=== PATIENT | female | born 1985 | race Caucasian/White ===

== ENCOUNTER 2016-07-13 11:25 | Emergency (ER) | payer MEDICAID ==
[2016-07-13] MEDS ORDERED: NS 1,000 ML IV ONE (11:54)
[2016-07-13] MEDS ORDERED: HYDROmorphONE/DILAUDID 1 MG/ML SYR IVP ONE ×2 (11:54→13:12)
[2016-07-13] MEDS ORDERED: ONDANSETRON 4 MG/2 ML VIAL ONE (12:07)
[2016-07-13 12:27] LABS: % IMMATURE GRANULYOCYTES 0.2 % (0.0-1.1); ABSOLUTE IMMATURE GRANULOCYTES 0.02 10^3/uL (0.00-0.10); ADD DIFF? NO; ADD MORPH? NO; ADD SCAN? NO; ATYPICAL LYMPHOCYTE FLAG 0 (0-99); FRAGMENT RBC FLAG 0 (0-99); HEMATOCRIT 41.5 % (38.0-47.0); HEMOGLOBIN 14.3 g/dL (12.6-16.3); LEFT SHIFT FLG 0 (0-99); LIPEMIA HEMOLYSIS FLAG 90 (0-99); MEAN CELL HEMOGLOBIN 33.3 pg (27.9-34.1); MEAN CELL HEMOGLOBIN CONCENTR. 34.5 g/dL (32.4-36.7); MEAN CELL VOLUME 96.7 fL (81.5-99.8); PLATELET CLUMPS FLAG 0 (0-99); PLATELET COUNT 235 10^3/uL (150-400); RED BLOOD CELL COUNT 4.29 10^6/uL (4.18-5.33); RED CELL DISTRIBUTION WIDTH 12.2 % (11.5-15.2)
[2016-07-13] MEDS ORDERED: ONDANSETRON 4 MG/2 ML VIAL IVP ONE (12:32)
[2016-07-13 12:54] LABS: ANION GAP 9 mEq/L (8-16); CARBON DIOXIDE 24 mEq/l (22-31); CHLORIDE 105 mEq/L (97-110); CREATININE 0.7 mg/dL (0.6-1.0); GLOMERULAR FILTRATION RATE > 60; GLUCOSE 80 mg/dL (70-100); POTASSIUM 4.4 mEq/L (3.5-5.2); SODIUM 138 mEq/L (134-144)
[2016-07-13] MEDS ORDERED: IOPAMIDOL (ISOVUE-300) 100 ML BTL IV ONE (13:01)
[2016-07-13] MEDS ORDERED: HYDROmorphONE/DILAUDID 1 MG/ML SYR ONE (13:08)
[2016-07-13] MEDS ORDERED: LORazepam 2 MG/ML INJ ONE (13:46)
[2016-07-13] MEDS ORDERED: LORazepam 2 MG/ML INJ IVP ONE (14:00)
--- NOTE | 2016-07-13 14:28 | EDPHY ---
H & P Time Seen by Provider: 07/13/16 11:36 HPI/ROS: Chief complaint: Neck pain History of present illness: This is a 31-year-old female with a history of metastatic melanoma preparing to undergo treatment in [place] who presents to the emergency department for neck pain. Patient reports the onset of pain on Tuesday, approximately 3 days ago. The pain began on the left side of the neck. It has been progressively worsening. Pain now radiates throughout her neck and up into her head. This is making it very difficult to move her head. She states she has subsequently developed difficulty opening and closing her mouth and swallowing. She denies precipitating factors. She denies alleviating factors. Patient denies other associated signs or symptoms including no current fever or cold symptoms, no history of trauma, no neurologic symptoms such as paresthesias, weakness or paralysis or bowel or bladder dysfunction. She does report she underwent an upper GI endoscopy approximately 3 weeks ago which did show some polyps but was otherwise unremarkable. Review of systems: A 10 point review of systems was obtained and other than described above was negative Smoking Status: Current every day smoker Physical Exam: General Appearance: Alert, nontoxic. Eyes: Pupils equal and round no pallor or injection. ENT, Mouth: Tympanic membranes, external auditory canals, external ears and surrounding soft tissue including over the mastoids are unremarkable. Nasopharynx is not injected. There is no rhinorrhea. Oropharynx is not injected. There is no edema. There is no exudate. There is no asymmetry. The uvula is midline. No elevation of the tongue. There is no hoarseness, no drooling, no trismus, no stridor. Respiratory: There are no retractions, lungs are clear to auscultation. Cardiovascular: Regular rate and rhythm. Gastrointestinal: Abdomen is soft and non tender, no masses, bowel sounds normal. Neurological: Alert and oriented x4. Cranial nerves 2-12 grossly intact. Strength and sensation intact and symmetrical. Skin: Warm and dry, no rashes. Musculoskeletal: Head is normocephalic, atraumatic. The spine itself is nontender to palpation. There is tenderness over the left side of the neck. However no warmth, no edema, no induration or fluctuance appreciated. Psychiatric: Patient is oriented X 3, there is no agitation. Constitutional: Initial Vital Signs Temperature (C) 36.7 C 07/13/16 11:30 Heart Rate 90 07/13/16 11:30 Respiratory Rate 16 07/13/16 11:30 Blood Pressure 136/98 H 07/13/16 11:30 O2 Sat (%) 93 07/13/16 11:30 O2 Delivery Mode Room Air O2 (L/minute) 2 Allergies/Adverse Reactions: coconut Allergy (Verified 07/13/16 11:29) Sulfa (Sulfonamide Antibiotics) Allergy (Verified 07/13/16 11:29) Home Medications: Medication Instructions Recorded Celexa 07/13/16 Concerta 07/13/16 Hydrocodone/APAP 5/325 [[place] 1 tab PO Q6H #10 tab 07/13/16 5/325 (*)] Promethazine HCl [Phenergan 25mg 25 mg PO Q6 #6 tab 07/13/16 (*)] traMADol 07/13/16 Medical Decision Making - Diagnostics Imaging: Imaging Impressions Head CT 07/13/16 12:54 Impression: Normal head CT. These findings were discussed by telephone with Kamran Andersen PA-C at [address] 07/13/16 12:54 Impression: No evidence of mass or lymphadenopathy within the neck. These findings were discussed by telephone with Kamran Andersen PA-C at 1421 hrs. ED Course/Re-evaluation: The patient was discussed at length with my primary supervising physician Dr. Janiya Mota. Patient presents to the emergency depart with neck pain now with difficulty opening her mouth and swallowing. On presentation she is nontoxic. Physical exam reveals some tenderness over the left lateral neck. Baseline blood studies with trace leukocytosis otherwise unremarkable. CT scan of the head and CT scan of the soft tissue of the neck are negative for acute findings. She is symptomatically treated with improvement in symptoms. I have consulted with [facility], [facility]. He has reviewed the imaging studies himself. He does not believe scoping the patient will provide further useful data at this point and the patient can follow up in his clinic. I have discussed possibility of meningitis with the patient, I do not believe this is consistent with a meningitis, we have discussed the risks and benefits of a lumbar puncture and she has declined. Patient is comfortable being discharged home. Home care is discussed. Including the use of narcotics. She has requested antiemetics since narcotics can make her nauseated, she is given Phenergan and she has used this before. She is asked to follow up with her primary care doctor and ENT for continued evaluation and care. Strict return precautions are given. Patient voiced understanding and agreement with plan. Differential Diagnosis: Included but not limited to muscle spasms, torticollis, infectious pathology such as cellulitis or deep space abscess, malignancy, unlikely meningitis - Data Points Laboratory Results: Laboratory Results 07/13/16 12:07/13/16 12:07/13/16 07/13/16 07/13/16 12: 12: 12: WBC 10.03 10^3/uL H 10^3/uL (3.80-9.50) RBC 4.29 10^6/uL 10^6/uL (4.18-5.33) Hgb 14.3 g/dL g/dL (12.6-16.3) Hct 41.5 % % (38.0-47.0) MCV 96.7 fL fL (81.5-99.8) MCH 33.3 pg pg (27.9-34.1) MCHC 34.5 g/dL g/dL (32.4-36.7) RDW 12.2 % % (11.5-15.2) Plt Count 235 10^3/uL 10^3/uL (150-400) MPV 9.0 fL fL (8.7-11.7) Neut % (Auto) 57.0 % % (39.3-74.2) Lymph % (Auto) 33.0 % % (15.0-45.0) [place] % (Auto) 7.9 % % (4.5-13.0) Eos % (Auto) 1.5 % % (0.6-7.6) Baso % (Auto) 0.4 % % (0.3-1.7) Nucleat RBC Rel Count 0.0 % % (0.0-0.2) Absolute Neuts (auto) 5.72 10^3/uL 10^3/uL (1.70-6.50) Absolute Lymphs (auto) 3.31 10^3/uL H 10^3/uL (1.00-3.00) Absolute Monos (auto) 0.79 10^3/uL 10^3/uL (0.30-0.80) Absolute Eos (auto) 0.15 10^3/uL 10^3/uL (0.03-0.40) Absolute Basos (auto) 0.04 10^3/uL 10^3/uL (0.02-0.10) Absolute Nucleated RBC 0.00 10^3/uL 10^3/uL (0-0.01) Immature Gran % 0.2 % % (0.0-1.1) Immature Gran # 0.02 10^3/uL 10^3/uL (0.00-0.10) Sodium 138 mEq/L mEq/L (134-144) Potassium 4.4 mEq/L mEq/L (3.5-5.2) Chloride 105 mEq/L mEq/L (97-110) Carbon Dioxide 24 mEq/l mEq/l (22-31) Anion Gap 9 mEq/L mEq/L (8-16) BUN 15 mg/dL mg/dL (7-23) Creatinine 0.7 mg/dL mg/dL (0.6-1.0) Estimated GFR > 60 Glucose 80 mg/dL mg/dL (70-100) Calcium 9.0 mg/dL mg/dL (8.5-10.4) Beta HCG, Qual NEGATIVE Medications Given: Discontinued Medications Diphenhydramine HCl (Benadryl Injection) 25 mg IVP EDNOW ONE Stop: 07/13/16 14:10 Last Admin: 07/13/16 14:05 Dose: 25 mg Hydromorphone HCl (Dilaudid) 1 mg IVP EDNOW ONE Stop: 07/13/16 11:55 Last Admin: 07/13/16 12:20 Dose: 1 mg Hydromorphone HCl (Dilaudid) 1 mg IVP EDNOW ONE Stop: 07/13/16 13:13 Last Admin: 07/13/16 13:10 Dose: 1 mg Sodium Chloride (Ns) 1,000 mls @ 0 mls/hr IV ONCE ONE PRN Reason: Wide Open Stop: 07/13/16 11:55 Last Admin: 07/13/16 12:15 Dose: 1,000 mls Ketorolac Tromethamine (Toradol) 30 mg IVP EDNOW ONE Stop: 07/13/16 14:47 Last Admin: 07/13/16 15:10 Dose: 30 mg Lorazepam (Ativan Injection) 0.5 mg IVP EDNOW ONE Stop: 07/13/16 14:01 Last Admin: 07/13/16 13:45 Dose: 0.5 mg Ondansetron HCl (Zofran) 4 mg IVP EDNOW ONE Stop: 07/13/16 12:33 Last Admin: 07/13/16 12:20 Dose: 4 mg Departure - Departure Disposition: Home, Routine, Self-Care Clinical Impression: Neck pain Condition: Good Instructions: Neck Pain (ED) Additional Instructions: Follow-up with your primary care doctor and ears Nose and Throat doctor in the next 1-2 days for continued evaluation and care In regards to pain control see the following: Use ibuprofen [600] mg [3] times a day for the next 2-3 days for pain In addition You have been prescribed [[place]] for pain. [[place]] contains Tylenol, do not take extra Tylenol/acetaminophen/Apap with it. It is sedating. If symptoms worsen or new symptoms develop return to the emergency room for recheck Referrals: CELE VALENCIA [Other] - As per Instructions Foster Murcia PA [Physician Laundry Presser] - As per Instructions Prescriptions: Hydrocodone/APAP 5/325 [[place] 5/325 (*)] 1 tab PO Q6H #10 tab Promethazine HCl [Phenergan 25mg (*)] 25 mg PO Q6 #6 tab
[2016-07-13 14:31] VITALS: RESP 16
[2016-07-13] MEDS ORDERED: KETOROLAC 30 MG/1 ML SDV IVP ONE (14:46)
[2016-07-13 16:33] VITALS: BP 134/72; PULSE 81; TEMP 97.9; O2SAT 95
== END 2016-07-13 16:33 | disposition home or self-care (01) ==
DX: M54.2 Cervicalgia (principal); F17.200 Nicotine dependence, unspecified, uncomplicated
CPT/HCPCS: 96374; J1170; J1200; J1885; J2060; J2405; Q9967